=== PATIENT | female | born 1990 | race Two or more races ===

== ENCOUNTER 2025-01-28 13:37 | Emergency (ER) | payer MEDICAID, SELFPAY ==
[2025-01-28 13:47] VITALS: BP 132/88; PULSE 99; RESP 16; TEMP 36.8; O2SAT 98; BMI 38.9
--- NOTE | 2025-01-28 14:25 | XR_ITS ---
Examination: Shoulder,left, 3 views Technique: Shoulder AP internal rotation, AP external rotation, Y view shoulder, 3 views Exam date and time :January 28, 2025, 1440 hrs. Indications: Left shoulder pain beginning 6 days ago. Findings: No shoulder fracture or dislocation Mild narrowing glenohumeral joint No AC joint separation Impression: Mild narrowing glenohumeral joint Negative for calcific tendinitis
[2025-01-28] MEDS: ACETAMINOPHEN 500 MG TABLET 1000 MG PO (15:02)
[2025-01-28] MEDS: IBUPROFEN TAB 400 MG TABLET 800 MG PO (15:02)
--- NOTE | 2025-01-28 15:36 | PD.EDUPEX ---
Upper Extremity Injury RME/HPI General Chief Complaint: Extremity Injury, Upper Stated Complaint: LEFT ARM PAIN NO TRAUMA Time Seen by Provider: 01/28/25 13:47 Arrival date/time: 01/28/25 13:37 This is a 34-year-old female that comes in with complaints of left shoulder pain. Patient denies trauma. Related Data Previous Rx's ?Medication ?Instructions ?Recorded loratadine 10 mg tablet (Claritin) 10 mg PO QDAY #30 tabs 12/10/22 montelukast 10 mg tablet 10 mg PO QPM #30 tabs 12/10/22 prednisone 50 mg tablet 50 mg PO BID #10 tabs 12/10/22 Allergies Allergy/AdvReac Type Severity Reaction Status Date / Time dextromethorphan Allergy Intermediate SWELLING Verified 01/28/25 13:40 phenylephrine Allergy Intermediate SWELLING Verified 01/28/25 13:40 Course Orders Category Date Time Status XR shoulder LT min 2V Stat Exams 01/28/25 14:25 Completed Acetaminophen Tab [Tylenol ES Tab] Med 01/28/25 14:25 Discontinued 1,000 mg PO X1 ONE Ibuprofen Tab [Motrin Tab] Med 01/28/25 14:25 Discontinued 800 mg PO X1 ONE Vital Signs Vital signs: Vital Signs Temperature 98.2 F 01/28/25 13:47 Pulse Rate 99 01/28/25 13:47 Respiratory Rate 16 01/28/25 13:47 Blood Pressure 132/88 H 01/28/25 13:47 Pulse Oximetry (%) 98 01/28/25 13:47 Oxygen Delivery Method Room Air 01/28/25 13:47 Extremity Injury MDM Narrative MDM Narrative:: shoulder x ray: Findings: No shoulder fracture or dislocation Mild narrowing glenohumeral joint No AC joint separation Impression: Mild narrowing glenohumeral joint Negative for calcific tendinitis Medications / Prescriptions Medication administrations:: Medication Administration History Discontinued Medications Acetaminophen (Acetaminophen 500 Mg Tablet) 1,000 mg PO X1 ONE Stop: 01/28/25 14:26 Last Admin: 01/28/25 15:02 Dose: 1,000 mg Documented By: WILLARD Ibuprofen (Ibuprofen Tab 400 Mg Tablet) 800 mg PO X1 ONE Stop: 01/28/25 14:26 Last Admin: 01/28/25 15:02 Dose: 800 mg Documented By: WILLARD Discharge Plan Plan Patient Disposition: HOME (Self Care) Patient condition on transfer: Stable Prescriptions/Referrals Prescriptions/Med Rec: No Action prednisone 50 mg tablet 50 mg PO BID Qty: 10 0RF montelukast 10 mg tablet 10 mg PO QPM Qty: 30 0RF loratadine [Claritin] 10 mg tablet 10 mg PO QDAY Qty: 30 0RF Referrals: No Primary/Family,Physician [Primary Care Provider] - In 1 week Problem List Clinical Impression: Acute shoulder pain Patient/Caregiver Discharge Instructions Discharge Activity: activity as tolerated Education Materials: ED RICE Additional Instructions: Follow up with primary provider in 1-2 days. Come back to ED if symptoms change or worsen Print Language: [place] Citizen Stand Alone Forms: Mora Award Info., Patient Portal Info Letter PA/HISTOLOGIST TECHNOLOGIST Supervising Physician PA/HISTOLOGIST TECHNOLOGIST Supervising Physician: [email or web address]
== END 2025-01-28 15:49 | disposition home or self-care (01) ==
PROVIDERS: Emergency Provider Emergency Medicine
DX: M25.512 Pain in left shoulder (principal)
CPT/HCPCS: 73030; 99283; A9270